=== PATIENT | female | born 1965 | race Caucasian/White ===

== ENCOUNTER → 2016-08-24 | Outpatient (CLI) | payer SELFPAY ==
[~2016-08-24] MED LIST: ASPIRIN ADULT L81 M1 PO; ENTOCORT PO; FISH OIL500 M1 PO; GUAIFENESIN600 MG PO; LOMOTIL 0.025 M1 TA1 PO; ONE-TABLET-DAI1 EACH PO; SINGULAIR10 M1 PO; SLEEP AID25 M1 PO; ZANTAC 150150 MG PO; [UNRECOGNIZED DRUG - OTHER]
== END | disposition home or self-care (01) ==
LOC: RAD 15:38
DX: M25.471 Effusion, right ankle (principal)

== ENCOUNTER → 2016-10-25 | Outpatient (CLI) | payer BC, MEDICARE | END | disposition home or self-care (01) | LOC: US 10:34 | DX: R60.9 Edema, unspecified (principal); M79.89 Other specified soft tissue disorders ==

== ENCOUNTER → 2019-10-13 | Outpatient (CLI) | payer BC, MEDICARE | END | disposition home or self-care (01) | LOC: COVID19 00:13 | DX: Z20.828 Contact with and (suspected) exposure to other viral communicable diseases (principal); R05 Cough; J32.9 Chronic sinusitis, unspecified ==

== ENCOUNTER → 2020-11-25 | Outpatient (CLI) | payer BC, MEDICARE ==
[2020-11-25 11:00] LABS: HEMATOCRIT 38.3 % (37.0-47.0); MEAN CELL VOLUME 94.3 fl (81.0-99.0); MEAN CORPUSCULAR HGB CONC 31.9 g/dl (33.0-37.0); MEAN PLATELET VOLUME 8.9 fl (9.6-12.3); RED BLOOD COUNT 4.06 10*6/uL (4.10-5.10); RED CELL DISTRI WIDTH 13.2 % (0-14.5); WHITE BLOOD COUNT 5.2 10*3/uL (4.8-10.8)
[2020-11-25 11:15] LABS: ALBUMIN 3.7 gm/dl (3.1-4.5); ALKALINE PHOSPHATASE 103 U/L (45-117); BUN 13 mg/dl (7-24); CHLORIDE 107 mmol/L (98-107); CHOLESTEROL 190 mg/dL (<200); CREATININE 0.91 mg/dL (0.55-1.02); LDL CHOLESTEROL 107 mg/dL (9-159); POTASSIUM 4.4 mmol/L (3.5-5.1); SGOT/AST 14 IU/L (3-35); SGPT/ALT 24 U/L (12-78); SODIUM 141 mmol/L (136-145); TOTAL PROTEIN 7.3 gm/dL (6.4-8.2); TRIGLYCERIDES 95 mg/dl (<150)
[2020-11-25 11:41] LABS: VITAMIN D, 25-HYDROXY 43.7 ng/mL (30-100)
[2020-11-26 14:07] LABS: ANTI-SMOOTH MUSCLE ANTIBODY 5 Units (0-19)
== END | disposition home or self-care (01) ==
LOC: LAB 10:40
PROVIDERS: ATTEND Family Medicine
DX: Z00.00 Encounter for general adult medical examination without abnormal findings (principal); R53.83 Other fatigue; E55.9 Vitamin D deficiency, unspecified; R35.8 Other polyuria; R63.1 Polydipsia; R10.9 Unspecified abdominal pain; G95.89 Other specified diseases of spinal cord

== ENCOUNTER → 2020-12-09 | Outpatient (CLI) | payer BC, MEDICARE | END | disposition home or self-care (01) | LOC: CT 12-02 11:00 | PROVIDERS: ATTEND Family Medicine | DX: K50.90 Crohn's disease, unspecified, without complications (principal); R10.9 Unspecified abdominal pain; Z90.49 Acquired absence of other specified parts of digestive tract ==